=== PATIENT | female | born 1965 | race African-American/Black ===

== ENCOUNTER 2019-04-16 14:48 | Emergency (ER) | payer MEDICAID ==
[~2019-04-16] VITALS: Ht 170.2 cm; Wt 63.5 kg
[2019-04-16] MEDS ORDERED: SODIUM CHLORIDE 0.9% 1,000 ML IV ONE ×2 (14:59)
[2019-04-16 15:32] LABS: Basophils # (auto) 0 uL; Basophils % (auto) 0.5 % (0.0-2.0); Eosinophils # (auto) 0 uL; Eosinophils % (auto) 0.1 % (0.0-7.0); Hematocrit 50.8 % (36.0-46.0); Hemoglobin 16.8 g/dL (12.2-16.2); Lymphocytes # (auto) 0.6 uL; Lymphocytes % (auto) 6.8 % (10.0-50.0); Mean Corpuscular Hemoglobin 32.2 pg (28.0-32.0); Mean Corpuscular Volume 97.4 fL (80.0-100.0); Monocytes # (auto) 0.5 uL; Monocytes % (auto) 5.5 % (0.0-12.0); Neutrophils # (auto) 7.9 uL; Neutrophils % (auto) 87.1 % (37.0-80.0); Nucleated Red Blood Cells % 0.2 %; Platelet Count (auto) 181 10^3/uL (140-450); Red Blood Cells 5.22 10^6/uL (4.0-5.20)
[2019-04-16] MEDS ORDERED: LEVETIRACETAM INJ 1,000 MG in D5W 5% 100 ML IV ONE (15:45)
[2019-04-16 15:46] LABS: INR 0.97 (0.9-1.15); Partial Thromboplastin Time 30.9 sec (23.64-32.05)
[2019-04-16 15:52] LABS: Albumin 3.8 g/dL (3.4-5.0); Anion Gap 6 (5-15); Blood Urea Nitrogen 9 mg/dL (7-18); Calcium 8.7 mg/dL (8.5-10.1); Carbon Dioxide 23 mmol/L (21-32); Chloride 111 mmol/L (98-107); Glucose 96 mg/dL (74-106); Potassium 3.8 mmol/L (3.5-5.1); Sodium 140 mmol/L (136-145)
[2019-04-16 15:57] LABS: Alanine Aminotransferase 26 U/L (13-56); Alkaline Phosphatase 72 U/L (45-117); Aspartate Aminotransferase 36 U/L (15-37); BUN/Creatinine Ratio 11.1; Bilirubin, Total 0.3 mg/dL (0.2-1.0); GFR African American 95 mL/min; GFR Non-African American 79 mL/min; Total Protein 8.1 g/dL (6.4-8.2)
[2019-04-16 20:57] VITALS: BP 125/92
== END 2019-04-16 21:05 | disposition short-term general hospital (02) ==
LOC: EDBD 14:48 → ER 14:49
DX: R56.9 Unspecified convulsions (principal); E86.0 Dehydration
CPT/HCPCS: 36415; 70450; 71045; 80053; 84484; 85025; 85610; 85730; 96361; 96365; 99291; J1953; J7030; J7060

== ENCOUNTER 2022-11-21 13:02 | Emergency (ER) | payer MEDICAID ==
[~2022-11-21] VITALS: Ht 175.3 cm; Wt 54.5 kg
[2022-11-21 13:43] LABS: Basophils # (auto) 0 10 ^3/uL (0-0.2); Eosinophils # (auto) 0 10 ^3/uL (0-0.8); Eosinophils % (auto) 0.2 % (0.0-7.0); Hematocrit 47.1 % (36.0-46.0); Lymphocytes # (auto) 1.2 10 ^3/uL (0.4-5.4); Lymphocytes % (auto) 23.7 % (10.0-50.0); Mean Corpuscular Hgb Conc. 33.9 g/dL (32.0-36.0); Mean Corpuscular Volume 94.3 fL (80.0-100.0); Monocytes # (auto) 0.3 10 ^3/uL (0-1.3); Monocytes % (auto) 6.2 % (0.0-12.0); Neutrophils # (auto) 3.5 10 ^3/uL (1.6-8.6); Neutrophils % (auto) 68.9 % (37.0-80.0); Nucleated Red Blood Cells % 0.3 %; Red Blood Cells 4.99 10^6/uL (4.0-5.20); Red Cell Distribution Width 14.6 % (11.8-14.3); White Blood Cell 5.1 10^3/uL (4.4-10.8)
[2022-11-21 14:06] VITALS: BP 159/112
[2022-11-21 14:07] LABS: INR 0.93 (0.9-1.15); Partial Thromboplastin Time 36.5 sec (24.6-33.4)
[2022-11-21 14:27] LABS: Albumin 4.6 g/dL (3.4-5.0); BUN/Creatinine Ratio 16.2 (10.0-20.0); Bilirubin, Total 0.6 mg/dL (0.2-1.0); Calcium 9.3 mg/dL (8.5-10.1); Total Protein 8.3 g/dL (6.4-8.2)
[2022-11-21] MEDS ORDERED: IOHEXOL 300 MG/ML 100ML BOTTLE IJ ONE ×2 (17:42→20:22)
[2022-11-21 18:21] LABS: Urine Bacteria NONE SEEN /hpf (None Seen); Urine Blood Negative /uL (Negative); Urine Specific Gravity 1.017 (1.001-1.035); Urine WBC 2 /hpf (0 - 5)
== END 2022-11-21 20:11 | disposition left against medical advice (07) ==
LOC: ER 13:02
DX: R04.2 Hemoptysis (principal); Z98.890 Other specified postprocedural states
CPT/HCPCS: 36415; 71045; 80053; 81001; 85025; 85610; 85730; 86850; 86900; 86901; 99284; Q9967